=== PATIENT | male | born 1980 | race Caucasian/White ===

== ENCOUNTER 2017-01-06 15:33 | Emergency (ER) | payer SELFPAY ==
[~2017-01-06] VITALS: Ht 172.7 cm; Wt 109.1 kg
[2017-01-06 15:40] VITALS: BP 160/98; PULSE 79; RESP 14; O2SAT 100
[2017-01-06] MEDS ORDERED: TdaP Vaccine 0.5 mL Inj IM ONE (15:55)
--- NOTE | 2017-01-06 16:03 | ED.REPORT ---
HPI-Trauma Multiple Date of Service Jan 06, 2017 ED Provider: Lemuel Baig MD The patient is a 36 year old male who presents to the ED with left hand pain secondary to a nail gun injury that occurred just prior to arrival. The patient reportedly at work when his nail gun accidentally discharged into his left hand. The nail did not penetrate the hand and the patient removed the nail immediately after the injury. Associated symptoms also include left arm pain. The patient believes that he dislocated his shoulder because his pain feels identical to his previous anterior dislocation that occurred 1 year ago and required sedation & reduction. Patient is placed in a C-collar prior to arrival. He denies any neck pain, head injury or LOC. Nursing Notes Stated Complaint: LEFT HAND INJURY/NAIL THROUGH HAND Chief Complaint: Multiple Trauma/Fall Nursing Notes Reviewed: Yes Allergies: Coded Allergies: aspirin (Verified Allergy, Mild, HIVES, 01/06/17) ketorolac (Verified Allergy, Mild, HIVES, 01/06/17) Scheduled Amoxicillin/Clav K 875-125 mg (Augmentin 875-125 mg) 1 Each Tablet 1 TABLET PO BID Scheduled PRN Hydrocodone-Acetaminophen 5-325 mg (Hydrocodone-Acetaminophen 5-325 mg) 1 Each Tablet 1 TABLET PO Q4H PRN PRN For Pain General Time Seen by Provider: 16:17 Chief Complaint Extremity pain/injury Hx Obtained From: Patient Arrived By: Walk-in Onset Occurred: Just prior to arrival Context of Onset: During work Symptom Duration: Since onset Progression Since Onset: Unchanged Location: : Hand left Quality: Painful Severity: Current: Moderate Severity: Maximum: Moderate Associated with: Reports: Numb extremity, Denies: Headache, Loss of consciousness... Pertinent Negative: Pt denies other symptoms Recent Healthcare: No recent doctor visit, No recent hospitalization Past Medical History Past Medical History None reported Past Surgical History None reported Smoking History Unknown if Ever Smoker Social History Other Social History: Local resident Occupation Construction Ambulatory Status Independent Review of Systems Musculoskeletal: Reports: Extremity pain (L hand), Joint pain (Left shoulder) Neurologic: Denies: Change LOC, Headache Complete sys rev & neg: except as marked. Physical Exam Initial Vital Signs Vital Signs (First) Date Time Temp Pulse Resp B/P Pulse Ox O2 Delivery O2 Flow Rate FiO2 01/06/17 15:40 36.0 79 14 160/98 100 01/06/17 17:35 Nasal Cannula 4 Initial VS: Reviewed Skin: Warm, Dry, No cyanosis Psychiatric: Mood/affect normal, Behavior normal, Normal thought content General/Constitutional: Awake, Alert, Well appearing, Well developed Appearance / Presentation: Positive: Uncomfortable Head / Eyes: Atraumatic, Normocephalic, PERRL, EOMI Neck: Atraumatic, Supple, Non-tender Trauma - Neck Specific: Positive: Immobilized - C Collar Respiratory / Chest: Atraumatic, Breath sounds NL, Breath sounds = bilat, No respiratory distress Cardiovascular: Heart rate NL, Regular rhythm, Heart sounds NL, No gallop, No murmurs, No rubs Abdomen: Atraumatic, Soft, Non-tender, No guarding, No rebound, No distention Back: Atraumatic, Inspection NL, Non-tender Neurologic: Oriented X3, Speech NL, No motor deficits, No sensory deficits, CN II - XII intact, Reflexes equal bilat, Cerebellar NL Upper Extremity / MS: Atraumatic, No deformity, Neurologic intact, Vascular intact Upper Ext Brief Normals: Shoulder R exam normal, Elbow L exam normal Left Shoulder: Positive: Tenderness present..., Negative: Deformity present (No obvious deformity), Pulses distal absent, Pulses distal decreased Wrist / Hand: No deformity, Neurologic intact, Vascular intact Trauma / Burn / Environmental: Positive: Puncture wound (Left hand over the dorsum, proximal to the 5th MCP - Nail puncture wound) No exit wound from nail injury Able to flex and extend the hand Lower Extremity / Pelvis / MS: Atraumatic, Inspection NL, Neurologic intact, Vascular intact Interpretation & Diagnostics X-Ray Interpretation Xray Interpretation: IMPRESSION: No fracture or foreign body material found. Dictated by: Mike Graham M.D. on 01/06/2017 at 16:38 X-Ray Ordered: Hand left Interpretation / Wet Read by: Interpret - Radiologist Xray Interpretation: IMPRESSION: Left shoulder anterior dislocation. Dictated by: Jennyfer Quintanilla MD, PhD on 01/06/2017 at 16:47 X-Ray Ordered: Shoulder left Interpretation / Wet Read by: Interpret - Radiologist Xray Interpretation: IMPRESSION: No trauma found, no dislocation identified. Dictated by: Mike Graham M.D. on 01/06/2017 at 16:34 X-Ray Ordered: Elbow left Interpretation / Wet Read by: Interpret - Radiologist Procedures Proced Mod Sedation/Analgesia Time: 17:22 Procedure Performed by: ED physician Consent / Setup: Informed consent provided, Time-out performed, Hand hygiene observed, Stand sterile technique, Position supine Indication: Shoulder reduction Preparation: monitor and storage bin tender applied, Pulse oximeter applied, Constant attendance, IV access established, Eval last meal time (>4 hours), Supplemental oxygen, Procedure explained, Suction available, End tidal CO2 mon applied VS Prior to Procedure: All vital signs normal, O2 saturation normal, Blood pressure normal, Heart Rate normal, Respiratory rate normal Airway Exam: Normal facial anatomy CVS/Resp Exam: Normal breath sounds, Normal heart sounds Sedation: Sedation: Propofol (200mg) ASA Classification: 1 normal healthy patient Response During Procedure: Handled secretions adeq, Maintained airway well, Oxygenation stable, Sedation appropriate, Vital signs stable Complications During/After: None Reversal: None required Mental Status After Procedure: Normal per age, At patient's baseline Post-Procedure: Vital signs normal Attestation: I performed procedure, I performed sedation Reduction Dislocated Shoulder Time: 17:23 Procedure Performed by: ED physician Consent / Setup: Informed consent provided, Time-out performed, Oxygen administered, Pulse oximeter applied, monitor and storage bin tender applied, Hand hygiene observed, Stand sterile technique Procedural Sedation/Analgesia: Sedation: Propofol (200mg) Which Shoulder and Technique: Left shoulder Neurovascular: Intact pre-procedure, Intact post-procedure Post-Procedure / Complications: Reduced per examination, Procedure successful, X-ray disloc reduced, Shoulder immobilized, Condition improved, Tolerated procedure well, Patient stable Re-Eval/Medical Decision Med Decision/Clinical Course The patient is a 36 year old male who presents to the ED with left hand pain secondary to a nail gun injury that occurred just prior to arrival. The patient reportedly at work when his nail gun accidentally discharged into his left hand. The nail did not penetrate the hand and the patient removed the nail immediately after the injury. Associated symptoms also include left arm pain. The patient believes that he dislocated his shoulder because his pain feels identical to his previous anterior dislocation that occurred 1 year ago and required sedation & reduction. Patient is placed in a C-collar prior to arrival. He denies any neck pain, head injury or LOC. Upon arrival patient's airway, breathing and circulation were intact. Full head to toe survey revealed the above noted injuries. Eating studies were obtained as below: Hand X-ray IMPRESSION: No fracture Shoulder IMPRESSION: Left shoulder anterior dislocation. Elbow IMPRESSION: No trauma found, no dislocation identified. Patient's tetanus status was updated, he received oxycodone and hydromorphone for pain as well as IV fluids. Procedural sedation as well as reduction of his shoulder dislocation were performed as documented above. The shoulder was successfully reduced and the patient was placed in a sling. I discussed the patient's nail injury with orthopedic surgery on-call Dr. Morales. They will follow-up with him in clinic next week. They recommend prophylactic Augmentin as well as hand to immobilize the wrist and hand. The patient was provided with a Velcro splint. He has been provided with a prescription for pain medication. The patient's cervical spine was clinically cleared and the collar was removed. He had no ongoing distracting injuries. Of note, the patient became quite agitated multiple times during his emergency department visit demanding additional doses of IV Dilaudid. At time of discharge he demanded a prescription for oxycodone stating that hydrocodone was inadequate. I declined to give him a prescription for oxycodone which point he became very agitated and aggressive towards nursing staff requiring that hospital security be called to assist in discharge. Prior to discharge follow-up and return precautions were reviewed in detail with the patient who verbalized understanding and agreement with the plan. The patient was discharged in stable condition. Re-Evaluation/Progress : Time of Eval: 17:24 Re-Evaluation/Progress Note: Procedural sedation is performed. Patient tolerated without complication. Shoulder is reduced successfully. Patient tolerates. Consultation : Referral / Consult Name: Prudencio Fuentes DO Consulted With: Surgeon Call Returned at: 16:18 Supervisor Electronics Testing: Will see patient, Agrees with eval, Agrees with plan Counseled Regarding: Diagnosis, Lab results, Need for follow-up, When/why to return to ED Discharge & Departure Impression: Primary Impression: Shoulder dislocation Encounter type: initial encounter Laterality: left Qualified Code: S43.005A - Unspecified dislocation of left shoulder joint, initial encounter Additional Impressions: Injury by nail gun Encounter type: initial encounter Qualified Code: W29.4XXA - Contact with nail gun, initial encounter Fall from ladder Encounter type: initial encounter Qualified Code: W11.XXXA - Fall on and from ladder, initial encounter Agitation Combative behavior Disposition: Home Discharge Condition All VS Reviewed: Yes Condition: Stable Patient Instructions: Shoulder Dislocation (ED) Additional Instructions: Thank you for seeking care at emergency room. Our primary goal today in the ED was to evaluate you for any life-threatening conditions. Your evaluation was reassuring. You will be discharged with a prescription for Augmentin. Take the full course as directed. Take ibuprofen and Tylenol intermittently as directed for pain. You should follow-up with your primary doctor in the next week. You should return to the ED immediately if you develop fevers, chills, redness , warmth, swelling, redness, or any signs of infection or any other concerning signs or symptoms. Thank you for letting us partake in your care today. Referrals: [facility] Crit Care Except Billable Proc Time Spent: 105-134 minutes Services Performed: Patient management by me, Time spent at bedside, Reviewing test results, Reviewing imaging, Discussing patient care, Documentation in record Critical Care Notes: Separate of any independently billable procedures. Management of acute traumatic injuries as well as agitated and combative patient. Scribe Attestation Portions of this note were transcribed by Shavonne Torres. I, Dr. Baig personally performed the history, physical exam and medical decision-making; I reviewed and confirmed the accuracy of the information in the transcribed note. Lemuel Baig MD Jan 06, 2017 16:03 SHAVONNE TORRES Jan 06, 2017 16:20
[2017-01-06] MEDS ORDERED: HYDR-4003 PO (16:16)
[2017-01-06] MEDS ORDERED: AMOX-366 PO (16:16)
--- NOTE | 2017-01-06 16:35 | DRSVH ---
PROCEDURE: X-RAY LEFT ELBOW, TWO VIEWS ([id number]) INDICATIONS: pain, fall, history of anterior dislocation TECHNIQUE: 3 views of the elbow were acquired. COMPARISON: None. FINDINGS: Bones: No fractures or dislocations. No suspicious bony lesions. Soft tissues: No elbow joint effusion. No suspicious soft tissue calcifications. IMPRESSION: No trauma found, no dislocation identified. Dictated by: Mike Graham M.D. on 01/06/2017 at 16:34 Approved by: Mike Graham M.D. on 01/06/2017 at 16:34
--- NOTE | 2017-01-06 16:39 | DRSVH ---
PROCEDURE: X-RAY LEFT HAND, MINIMUM THREE VIEWS ([id number]) INDICATIONS: nail in hand TECHNIQUE: 3 views of the hand(s) acquired. COMPARISON: None. FINDINGS: Bones: No fractures or dislocations. Carpal bones are normally aligned. No suspicious bony lesions . Soft tissues: No suspicious soft tissue calcifications. IMPRESSION: No fracture or foreign body material found. Dictated by: Mike Graham M.D. on 01/06/2017 at 16:38 Approved by: Mike Graham M.D. on 01/06/2017 at 16:38
--- NOTE | 2017-01-06 16:49 | DRSVH ---
PROCEDURE: X-RAY LEFT SHOULDER, MINIMUM TWO VIEWS ([id number]) INDICATIONS: pain, fall, history of anterior dislocation TECHNIQUE: 2 views of the shoulder were acquired. COMPARISON: None. FINDINGS: Bones: The humerus is dislocated anteriorly. No fracture identified, however postreduction images wilfrido uld be obtained. Soft tissues: No suspicious soft tissue calcifications. IMPRESSION: Left shoulder anterior dislocation. Dictated by: Jennyfer Quintanilla MD, PhD on 01/06/2017 at 16:47 Approved by: Jennyfer Quintanilla MD, PhD on 01/06/2017 at 16:48
[2017-01-06] MEDS ORDERED: Propofol 10 mg/mL 20 mL Inj IVPUSH ONE (17:00)
[2017-01-06] MEDS ORDERED: 0.9% Sodium Chloride 1,000 ML IV ONE (17:00)
[2017-01-06] MEDS ORDERED: HYDROmorphone 1 mg/mL Inj IVPUSH ONE ×2 (17:00→17:45)
[2017-01-06 17:35] VITALS: O2SAT 97
--- NOTE | 2017-01-06 18:06 | DRSVH ---
PROCEDURE: X-RAY LEFT SHOULDER, MINIMUM TWO VIEWS ([id number]) INDICATIONS: left shoulder post reduction TECHNIQUE: 2 views of the shoulder were acquired. COMPARISON: [facility], CR, XR SHOULDER MIN 2VW LT, 01/06/2017, 16:10. FINDINGS: Bones: Patient is status post reduction of left shoulder anterior dislocation. There is normal asso ciation of the humeral head and the glenoid fossa. Small ossification noted adjacent to the coracoid process which may represent old avulsion injury versus accessory ossicle. No acute fractures. No s uspicious bony lesions. Visualized ribs appear intact. Soft tissues: No suspicious soft tissue calcifications. IMPRESSION: Status post reduction of left anterior shoulder dislocation. No acute fractures identif ied. Dictated by: Jennyfer Quintanilla MD, PhD on 01/06/2017 at 18:03 Approved by: Jennyfer Quintanilla MD, PhD on 01/06/2017 at 18:05
[2017-01-06 18:23] VITALS: O2SAT 97
== END 2017-01-06 18:53 | disposition home or self-care (01) ==
LOC: SED 15:33
DX: S43.015A Anterior dislocation of left humerus, initial encounter (principal); W29.4XXA Contact with nail gun, initial encounter; W11.XXXA Fall on and from ladder, initial encounter; Y92.69 Other specified industrial and construction area as the place of occurrence of the external cause; Y93.H3 Activity, building and construction; Y99.0 Civilian activity done for income or pay; R45.1 Restlessness and agitation; F91.8 Other conduct disorders; Z23 Encounter for immunization; Z87.828 Personal history of other (healed) physical injury and trauma; Z88.6 Allergy status to analgesic agent
CPT/HCPCS: 23650; 73030; 73070; 73130; 90471; 90715; 94770; 94799; 96361; 96374; 96375; 96376; 99285; J1170; J2704; J7030